=== PATIENT | male | born 1960 | race Caucasian/White ===

== ENCOUNTER 2017-11-26 13:48 | Emergency (ER) | payer OTHER, SELFPAY ==
[2017-11-26 15:49] LABS: Urine Blood NEGATIVE (NEG); Urine Glucose NEGATIVE (NEG); Urine Protein NEGATIVE (NEG); Urine Specific Gravity 1.015 (1.005-1.030); Urine pH 5.5 (5.0-7.0)
[2017-11-26 16:09] LABS: Urine Bacteria <20 /HPF (NONE SEEN); Urine Culture Reflex Order NOT NEEDED; Urine RBC <5 /HPF (NONE SEEN)
[2017-11-26 16:36] LABS: Absolute Lymphocytes (CBC) 1.6 K/uL (0.7-4.9); Absolute Monocytes 0.5 K/uL (0.1-1.3); Absolute Neutrophil 4.7 K/uL (1.8-8.0); Basophils % 0.4 % (0-1.3); Eosinophils % 2.9 % (0-4.4); Hematocrit 40.7 % (39.6-49.0); Lymphocytes % 23.1 % (15.3-44.8); MCH 29.8 pg (27.0-35.0); MCV 89.9 fL (80-100); MPV 10.1 fL (7.6-11.3); Monocytes % 7.1 % (3.3-12.3); RBC Red Blood Cell Count 4.53 M/uL (4.33-5.43)
--- NOTE | 2017-11-26 16:39 | RAD REPORT ---
EXAM DESCRIPTION: CT - Stone Protocol - 11/26/2017 4:27 pm CLINICAL HISTORY: Abdominal pain/flank pain/dysuria COMPARISON: None TECHNIQUE: Computed axial tomography of the abdomen pelvis was obtained without oral or IV contrast. Lack of IV and oral contrast limits evaluation of solid organs, bowel, and vessels. Coronal reformat nidhi images were obtained and reviewed. All CT scans are performed using dose optimization technique as appropriate and may include automated exposure control or mA/KV adjustment according to patient size. FINDINGS: A renal calculus is not seen. An ureteral calculus is not noted. A bladder calculus is not present. The liver, spleen, pancreas and adrenals appear grossly normal There is no evidence of diverticulitis. The appendix appears normal A diverticulum stems from the duodenum. A small umbilical hernia is present IMPRESSION: Negative for a genitourinary calculus
[2017-11-26 17:01] LABS: Potassium 4.2 mmol/L (3.5-5.1)
--- NOTE | 2017-11-26 17:17 | EDPHYS ---
Physician Documentation [facility] Name: Luis Melchor Age: 57 yrs Sex: Male : 1960 Arrival Date: 11/26/2017 Time: 13:51 Bed 13 Private MD: Johnny Hobson B ED Physician Gamaliel Lopez HPI: 11/26 17:14 This 57 yrs old Male presents to ER via Ambulatory with complaints of Urinary gs Problem. 17:14 The patient presents with urinary symptoms, dysuria. Onset: The symptoms/episode gs began/occurred 4 day(s) ago. Modifying factors: The symptoms are alleviated by nothing, the symptoms are aggravated by nothing. Associated signs and symptoms: Pertinent positives: lower back pain. Severity of symptoms: At their worst the symptoms were moderate, in the emergency department the symptoms are unchanged. The patient has experienced similar episodes in the past, a few times. The patient has not recently seen a physician. 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 - Social history:: Smoking status: Patient/guardian denies using tobacco, Patient/guardian denies using alcohol. - Ebola Screening: : Patient negative for fever greater than or equal to 101.5 degrees Fahrenheit, and additional compatible Ebola Virus Disease symptoms Patient denies exposure to infectious person Patient denies travel to an Ebola-affected area in the 21 days before illness onset. ROS: 17:14 All other systems are negative. gs Exam: 17:14 Head/Face: Normocephalic, atraumatic. Eyes: Pupils equal round and reactive to light, gs extra-ocular motions intact. Lids and lashes normal. Conjunctiva and sclera are non-icteric and not injected. Cornea within normal limits. Periorbital areas with no swelling, redness, or edema. ENT: Nares patent. No nasal discharge, no septal abnormalities noted. Tympanic membranes are normal and external auditory canals are clear. Oropharynx with no redness, swelling, or masses, exudates, or evidence of obstruction, uvula midline. Mucous membranes moist. Neck: Trachea midline, no thyromegaly or masses palpated, and no cervical lymphadenopathy. Supple, full range of motion without nuchal rigidity, or vertebral point tenderness. No Meningismus. Chest/axilla: Normal chest wall appearance and motion. Nontender with no deformity. No lesions are appreciated. Cardiovascular: Regular rate and rhythm with a normal S1 and S2. No gallops, murmurs, or rubs. Normal PMI, no JVD. No pulse deficits. Respiratory: Lungs have equal breath sounds bilaterally, clear to auscultation and percussion. No rales, rhonchi or wheezes noted. No increased work of breathing, no retractions or nasal flaring. Abdomen/GI: Soft, non-tender, with normal bowel sounds. No distension or tympany. No guarding or rebound. No evidence of tenderness throughout. Back: No spinal tenderness. No costovertebral tenderness. Full range of motion. Skin: Warm, dry with normal turgor. Normal color with no rashes, no lesions, and no evidence of cellulitis. MS/ Extremity: Pulses equal, no cyanosis. Neurovascular intact. Full, normal range of motion. Neuro: Awake and alert, GCS 15, oriented to person, place, time, and situation. Cranial nerves II-XII grossly intact. Motor strength 5/5 in all extremities. Sensory grossly intact. Cerebellar exam normal. Normal gait. 17:14 Constitutional: The patient appears alert, awake. Vital Signs: 14:14 BP 101 / 70; Pulse 64; Resp 18; Temp 97.5(TE); Pulse Ox 98% on R/A; Weight 115.67 kg; hj Height 5 ft. 10 in. (177.80 cm); Pain 4/10; 14:14 Body Mass Index 36.59 (115.67 kg, 177.80 cm) hj MDM: 14:27 Patient medically screened. gs 17:14 Differential diagnosis: UTI, urinary retention, kidney stone,aaa. Data reviewed: vital gs signs, nurses notes. Counseling: I had a detailed discussion with the patient and/or guardian regarding: the historical points, exam findings, and any diagnostic results supporting the discharge/admit diagnosis, lab results, radiology results. Response to treatment: the patient's symptoms have mildly improved after treatment, and as a result, I will discharge patient. 11/26 14:16 Order name: Urine Microscopic Only; Complete Time: 16:41 11/26 15:39 Order name: Urine Dipstick--Ancillary (enter results) em1 11/26 14:16 Order name: Urine Dipstick-Ancillary (obtain specimen); Complete Time: 15:37 11/26 16:00 Order name: CT Stone Protocol; Complete Time: 16:41 11/26 16:00 Order name: CBC with Diff; Complete Time: 16:41 11/26 16:00 Order name: Basic Metabolic Panel; Complete Time: 17:10 gs Administered Medications: No medications were administered Disposition: 11/26/17 17:16 Discharged to Home. Impression: Dysuria. - Condition is Stable. - Discharge Instructions: Dysuria. - Medication Reconciliation Form, Thank You Letter, Antibiotic Education, Prescription Opioid Use form. - Follow up: Adrienne Merritt MD; When: 2 - 3 days; Reason: Re-evaluation by your physician. Signatures: Dispatcher [employer] EDBen Silveira RN RN Suraj Garay RN RN Gamaliel Lopez MD MD Corrections: (The following items were deleted from the chart) 17:25 17:16 11/26/2017 17:16 Discharged to Home. Impression: Dysuria. Condition is Stable. sg Forms are Medication Reconciliation Form, Thank You Letter, Antibiotic Education, Prescription Opioid Use. Follow up: Adrienne Merritt; When: 2 - 3 days; Reason: Re-evaluation by your physician.
--- NOTE | 2017-11-26 17:17 | ER ---
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 Transition of care: patient was not received from another setting of care. Onset of symptoms was November 26, 2017. Risk Assessment: Do you want to hurt yourself or someone else? Patient reports no desire to harm self or others. Initial Sepsis Screen: Does the patient meet any 2 criteria? No. Patient's initial sepsis screen is negative. Does the patient have a suspected source of infection? No. Patient's initial sepsis screen is negative. Care prior to arrival: None. 14:11 Method Of Arrival: Ambulatory 14:11 Acuity: ALEX 3 hj Triage Assessment: 14:13 General: Appears in no apparent distress. uncomfortable, Behavior is calm, cooperative, hj appropriate for age. Pain: Complains of pain in abdomen. 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 - Social history:: Smoking status: Patient/guardian denies using tobacco, Patient/guardian denies using alcohol. - Ebola Screening: : Patient negative for fever greater than or equal to 101.5 degrees Fahrenheit, and additional compatible Ebola Virus Disease symptoms Patient denies exposure to infectious person Patient denies travel to an Ebola-affected area in the 21 days before illness onset. Screenin:13 Abuse screen: Denies threats or abuse. Denies injuries from another. Nutritional hj screening: No deficits noted. Tuberculosis screening: No symptoms or risk factors identified. Fall Risk None identified. Assessment: 15:00 General: Appears in no apparent distress. comfortable, well groomed, well developed, sg well nourished, Behavior is calm, cooperative, appropriate for age. Pain: Complains of pain in suprapubic area Quality of pain is described as crampy. Neuro: No deficits noted. Cardiovascular: Heart tones S1 S2 present Capillary refill is brisk in bilateral fingers Patient's skin is warm and dry. Chest pain is denied. Respiratory: Airway is patent Respiratory effort is even, unlabored, Respiratory pattern is regular, symmetrical. GI: Abdomen is round non-distended. : Reports burning with urination. EENT: No signs and/or symptoms were reported regarding the EENT system. Derm: Skin is pink, warm \T\ dry. Musculoskeletal: No signs and/or symptoms reported regarding the musculoskeletal system. Vital Signs: 14:14 BP 101 / 70; Pulse 64; Resp 18; Temp 97.5(TE); Pulse Ox 98% on R/A; Weight 115.67 kg; hj Height 5 ft. 10 in. (177.80 cm); Pain 4/10; 14:14 Body Mass Index 36.59 (115.67 kg, 177.80 cm) hj ED Course: 13:51 Patient arrived in ED. sb2 13:51 Johnny Hobson MD is Private Physician. sb2 14:12 Triage completed. hj 14:13 Arm band placed on left wrist. hj 14:13 Patient has correct armband on for positive identification. Placed in gown. Bed in low hj position. Call light in reach. Side rails up X 1. 14:17 Gamaliel Lopez MD is Attending Physician. gs 15:50 Ben Cabral, FESTUS is Primary Nurse. sg 16:21 Inserted saline lock: 22 gauge in left antecubital area, using aseptic technique. Blood ss collected. 16:29 CT Stone Protocol In Process Unspecified. EDMS 17:16 Adrienne Merritt MD is Referral Physician. gs 17:20 No provider procedures requiring assistance completed. IV discontinued, intact, sg bleeding controlled, No redness/swelling at site. Pressure dressing applied. Administered Medications: No medications were administered Outcome: 17:16 Discharge ordered by . gs 17:20 Discharged to home ambulatory, with family. sg 17:20 Condition: good 17:20 Discharge instructions given to patient, family, Instructed on discharge instructions, follow up and referral plans. safety practices, Demonstrated understanding of instructions, follow-up care. 17:25 Patient left the ED. sg Signatures: Dispatcher [employer] EDBen Silveira RN RN sg Smirch, Shelby, RN RN ss Joaquin, Henry, RN RN hj Starr, Gregory, MD MD gs Billeau, Sheri sb2 Corrections: (The following items were deleted from the chart) 14:15 14:14 Pulse 64bpm; Resp 18bpm; Pulse Ox 98% RA; Temp 97.5F Temporal; 115.67 kg; Height hj 5 ft. 10 in.; BMI: 36.5; Pain 4/10; hj
[2017-11-26 17:50] VITALS: BP 101/70; TEMP 97.5; O2SAT 98
== END 2017-11-26 17:25 | disposition home or self-care (01) ==
LOC: ER 13:48
DX: R30.0 Dysuria (principal); Z88.0 Allergy status to penicillin; Z85.89 Personal history of malignant neoplasm of other organs and systems
CPT/HCPCS: 36415; 74176; 76377; 80048; 81003; 81015; 85025; 99283

== ENCOUNTER 2020-09-04 17:41 | Emergency (ER) | payer OTHER ==
[2020-09-04 19:08] LABS: Absolute Lymphocytes (CBC) 1.8 K/uL (0.7-4.9); Basophils % 0.7 % (0-1.3); Lymphocytes % 18.3 % (15.3-44.8); MPV 9.8 fL (7.6-11.3); RBC Red Blood Cell Count 5.37 M/uL (4.33-5.43)
[2020-09-04 19:18] LABS: Protime INR 1.02
[2020-09-04] MEDS ORDERED: DIAZEPAM 10 MG/2 ML INJ SYRINGE ONE (19:20)
[2020-09-04] MEDS ORDERED: LIDOCAINE 4% PATCH ONE (19:20)
[2020-09-04 19:28] LABS: ALT/SGPT 26 U/L (12-78); AST/SGOT 18 U/L (15-37); Albumin 4.1 g/dL (3.4-5.0); Alkaline Phosphatase 81 U/L (45-117); BUN Blood Urea Nitrogen 20 mg/dL (7-18); Bicarbonate 28 mmol/L (21-32); Bilirubin Direct 0.1 mg/dL (0-0.2); Bilirubin Total 0.4 mg/dL (0.2-1.0); Glucose Level 96 mg/dL (74-106); Magnesium 2.3 mg/dL (1.8-2.4); NT PRO-BNP 83 pg/mL (<125); Protein, Total 7.7 g/dL (6.4-8.2); Sodium Level 140 mmol/L (136-145); Troponin (Emerg Dept Use Only) < 0.02 ng/mL (0.0-0.045)
--- NOTE | 2020-09-04 19:33 | RAD REPORT ---
EXAM DESCRIPTION: RAD - Chest Single View - 09/04/2020 7:05 pm CLINICAL HISTORY: Left arm numbness COMPARISON: May 2018 TECHNIQUE: AP portable chest image was obtained 09/04/2020 7:05 pm . FINDINGS: Lungs are clear. Lung markings match comparison. Heart and vasculature are normal. No carina urable pleural effusion and no pneumothorax. No acute bony abnormality seen. No acute aortic findings suspected. IMPRESSION: No acute cardiopulmonary process. No significant change from comparison study.
--- NOTE | 2020-09-04 19:49 | RAD REPORT ---
EXAM DESCRIPTION: CT - CTHCSPWOC - 09/04/2020 7:12 pm CLINICAL HISTORY: Left arm numbness, headache, head and neck cancer COMPARISON: Soft Tissue Neck W/Contr dated 02/05/2017 TECHNIQUE: Axial 5 mm thick images of the head were obtained. Axial 2 mm thick images of the cervic al spine were obtained with sagittal and coronal reconstruction images generated and reviewed. All CT scans are performed using dose optimization technique as appropriate and may include automated exposure control or mA/KV adjustment according to patient size. FINDINGS: No intracranial hemorrhage, mass, edema or acute intracranial finding. No suspicion for ac sana infarction. No extra-axial fluid collections. Mastoid air cells and paranasal sinuses are clear. No globe or orbit abnormality seen. Cervical body height and alignment are normal. Minimal disc space narrowing at C5-6 C6-7. Posterior e ndplate spurring and disc bulge changes are present both levels showing central spinal stenosis. Fora hermes stenosis present at C5-6 and C6-7 No fracture or acute bony abnormality. Central canal detail is inherently limited. No paraspinal mass or hematoma. IMPRESSION: Negative CT head examination for acute or significant finding. Negative CT cervical spine examination for acute finding. Endplate spurring uncovertebral joint hype rtrophy cause central spinal stenosis foraminal stenosis at C5-6 and C6-7.
--- NOTE | 2020-09-04 20:15 | ER ---
Nurse's Notes [facility] Name: Luis Melchor Age: 60 yrs Sex: Male : 1960 Arrival Date: 09/04/2020 Time: 17:44 Bed 6 Private MD: Johnny Hobson B Diagnosis: Muscle spasm of back;Radiculopathy, cervical region Presentation: 09/04 18:04 Chief complaint: Patient states: L arm numbness for 1 week. Dizziness for 1 day. Pain ll1 to L arm and L chest with certain arm movements. "I think its a pinched nerve.". Coronavirus screen: Client denies travel out of the [place] in the last 14 days. At this time, the client does not indicate any symptoms associated with coronavirus-19. Ebola Screen: Patient denies travel to an Ebola-affected area in the 21 days before illness onset. Initial Sepsis Screen: Does the patient meet any 2 criteria? HR > 90 bpm. No. Patient's initial sepsis screen is negative. Does the patient have a suspected source of infection? No. Patient's initial sepsis screen is negative. Risk Assessment: Do you want to hurt yourself or someone else? Patient reports no desire to harm self or others. Onset of symptoms was August 28, 2020. 18:04 Method Of Arrival: Ambulatory ll1 18:04 Acuity: ALEX 2 ll1 Historical: - Allergies: 18:07 PENICILLINS; ll1 - PMHx: 18:07 Cancer; caner of right tonsil and lymph node; Hypertension; ll1 - PSHx: 18:07 peg tube; R knee SX, L ankle SX; ll1 - Immunization history:: Flu vaccine is not up to date. - Social history:: Smoking status: Patient denies any tobacco usage or history of. Screenin:11 Abuse screen: Denies threats or abuse. Denies injuries from another. Nutritional ph screening: No deficits noted. Tuberculosis screening: No symptoms or risk factors identified. Fall Risk None identified. Assessment: 19:08 General: Appears in no apparent distress. comfortable, Behavior is calm, cooperative, ph appropriate for age. Pain: Complains of pain in left arm Pain radiates to neck and chest Quality of pain is described as radiating, sharp, shooting. Neuro: Level of Consciousness is awake, alert, obeys commands, Oriented to person, place, time, situation. Cardiovascular: Capillary refill < 3 seconds in bilateral fingers Patient's skin is warm and dry. Respiratory: Airway is patent Respiratory effort is even, unlabored, Respiratory pattern is regular, symmetrical. GI: No signs and/or symptoms were reported involving the gastrointestinal system. Derm: Skin is intact, is healthy with good turgor, Skin is pink, warm \\T\\ dry. Musculoskeletal: Circulation, motion, and sensation intact. Range of motion: intact in all extremities. 20:20 Reassessment: Patient appears in no apparent distress at this time. Patient is alert, rr5 oriented x 3, equal unlabored respirations, skin warm/dry/pink. discharge instruction given and explained without complaints made. Vital Signs: 18:04 BP 172 / 128; Pulse 98; Resp 18; Temp 97.6; Pulse Ox 96% on R/A; Weight 118.84 kg; ll1 Height 5 ft. 10 in. (177.80 cm); Pain 0/10; 20:55 BP 151 / 85; Pulse 90; Resp 17; Pulse Ox 98% ; rr5 18:04 Body Mass Index 37.59 (118.84 kg, 177.80 cm) ll1 ED Course: 17:44 Patient arrived in ED. as 17:44 Johnny Hobson MD is Private Physician. as 18:01 [facility]real [facility] pm1 18:01 Luis De La Rosa MD is Attending Physician. pm1 18:06 Triage completed. ll1 18:07 Arm band placed on Patient placed in an exam room, on a stretcher. ll1 18:24 Siomara Kapadia, RN is Primary Nurse. ph 18:47 Patient has correct armband on for positive identification. Placed in gown. Bed in low mh5 position. Call light in reach. Side rails up X 1. Pillow given. psychological operations specialist on. Pulse ox on. NIBP on. 18:48 EKG done, by ED staff, reviewed by Luis De La Rosa MD. mh5 18:58 Inserted saline lock: 20 gauge in right forearm, using aseptic technique. Blood bp collected. 19:04 XRAY Chest (1 view) In Process Unspecified. EDMS 19:12 CT Head C Spine In Process Unspecified. EDMS 19:15 Primary Nurse role handed off by Siomara Kapadia RN mw2 19:39 Yandel Morales, RN is Primary Nurse. rr5 20:55 No provider procedures requiring assistance completed. IV discontinued, intact, rr5 bleeding controlled, No redness/swelling at site. Pressure dressing applied. Administered Medications: 19:03 Drug: Valium (diazepam) 5 mg Route: IVP; Site: right forearm; ph 20:30 Follow up: Response: No adverse reaction rr5 19:43 Drug: Lidoderm 5 % (700 mg/patch) 1 patches {Note: left shoulder blade.} Route: rr5 Topical; Site: affected area; 20:40 Follow up: Response: No adverse reaction rr5 Outcome: 20:14 Discharge ordered by MD. pm1 20:55 Discharged to home ambulatory. rr5 20:55 Condition: stable 20:55 Discharge instructions given to patient, Instructed on discharge instructions, follow up and referral plans. medication usage, Demonstrated understanding of instructions, follow-up care, medications, Prescriptions given X 2. 20:55 Patient left the ED. rr5 Signatures: Dispatcher [employer] EDMS Angelique Dominique as Siomara Kapadia, RN RN ph Maxwell Villarreal, PREETI FILLER BLENDER pm1 Mary Jo Dominique 5 Canelo Tariq RN RN Aleja Carrero mw2 Yandel Morales, FESTUS RN rr5 Davide Dalal RN RN ll1 Corrections: (The following items were deleted from the chart) 18:07 18:04 Acuity: ALEX 3 ll1 ll1
--- NOTE | 2020-09-04 20:15 | EDPHYS ---
Physician Documentation [facility] Name: Luis Melcohr Age: 60 yrs Sex: Male : 1960 Arrival Date: 09/04/2020 Time: 17:44 Bed 6 Private MD: Johnny Hobson B ED Physician Luis De La Rosa HPI: 09/04 18:22 This 60 yrs old Male presents to ER via Ambulatory with complaints of pm1 Numbness Of Arm. 18:22 The patient or guardian complains of numbness to left arm. The complaints affect the pm1 left arm. Context: resulted from possible pinched nerve per patient. Onset: The symptoms/episode began/occurred 1 week(s) ago. Treatment prior to arrival includes: no previous treatment. Modifying factors: The symptoms are alleviated by movement of head to right side, and raising left arm up. the symptoms are aggravated by movement of head to left side. Associated signs and symptoms: Pertinent negatives: decreased range of motion, deformity. Severity of symptoms: in the emergency department the symptoms are unchanged. The patient has experienced similar episodes in the past, several times. Historical: - Allergies: 18:07 PENICILLINS; ll1 - PMHx: 18:07 Cancer; caner of right tonsil and lymph node; Hypertension; ll1 - PSHx: 18:07 peg tube; R knee SX, L ankle SX; ll1 - Immunization history:: Flu vaccine is not up to date. - Social history:: Smoking status: Patient denies any tobacco usage or history of. ROS: 18:22 Constitutional: Negative for fever, chills, and weight loss, Neck: Negative for injury, pm1 pain, and swelling, Cardiovascular: Negative for chest pain, palpitations, and edema, Respiratory: Negative for shortness of breath, cough, wheezing, and pleuritic chest pain. 18:22 Back: Negative for injury and pain, MS/Extremity: Negative for injury and deformity, Skin: Negative for injury, rash, and discoloration. 18:22 Neuro: Positive for numbness, of the left arm, Negative for weakness. 18:22 All other systems are negative. Exam: 18:22 Constitutional: This is a well developed, well nourished patient who is awake, alert, pm1 and in no acute distress. Head/Face: Normocephalic, atraumatic. 18:22 Skin: Warm, dry with normal turgor. Normal color with no rashes, no lesions, and no evidence of cellulitis. MS/ Extremity: Pulses equal, no cyanosis. Neurovascular intact. Full, normal range of motion. 18:22 Neck: External neck: tenderness, of the left trapezius, muscle spasm present, C-spine: vertebral tenderness, is not appreciated. 18:22 Cardiovascular: Exam negative for acute changes, Rate: normal, Rhythm: regular, Pulses: no pulse deficits are appreciated, Heart sounds: normal, normal S1and S2. 18:22 Respiratory: Exam negative for acute changes, respiratory distress, shortness of breath, Breath sounds: are clear throughout. 18:22 Back: normal spinal alignment noted, vertebral tenderness, is not appreciated, muscle spasm, is appreciated in the left trapezius. 18:22 Neuro: Exam negative for acute changes, Orientation: is normal, Mentation: is normal, Motor: is normal, moves all fours, strength is normal, strength is 5/5 in all extremities, Sensation: is normal, no obvious gross deficits. Vital Signs: 18:04 BP 172 / 128; Pulse 98; Resp 18; Temp 97.6; Pulse Ox 96% on R/A; Weight 118.84 kg; ll1 Height 5 ft. 10 in. (177.80 cm); Pain 0/10; 20:55 BP 151 / 85; Pulse 90; Resp 17; Pulse Ox 98% ; rr5 18:04 Body Mass Index 37.59 (118.84 kg, 177.80 cm) ll1 MDM: 18:05 Patient medically screened. pm1 20:01 Data reviewed: vital signs. Data interpreted: Pulse oximetry: on room air is 96 %. pm1 Interpretation: normal. Counseling: I had a detailed discussion with the patient and/or guardian regarding: the historical points, exam findings, and any diagnostic results supporting the discharge/admit diagnosis, lab results, radiology results, the need for outpatient follow up, to return to the emergency department if symptoms worsen or persist or if there are any questions or concerns that arise at home. 20:17 ED course: [place] reviewed: No results found. pm1 09/04 18:21 Order name: Basic Metabolic Panel pm1 09/04 18:21 Order name: CBC with Diff pm1 09/04 18:21 Order name: LFT's; Complete Time: 19:35 pm1 09/04 18:21 Order name: Magnesium; Complete Time: 19:35 pm1 09/04 18:21 Order name: NT PRO-BNP; Complete Time: 19:35 pm1 09/04 18:21 Order name: PT-INR; Complete Time: 19:42 pm1 09/04 18:21 Order name: CT Head C Spine; Complete Time: 20:00 pm1 09/04 18:21 Order name: Troponin (emerg Dept Use Only); Complete Time: 19:35 pm1 09/04 18:21 Order name: XRAY Chest (1 view); Complete Time: 19:35 pm1 09/04 18:21 Order name: EKG; Complete Time: 18:22 pm1 09/04 18:22 Order name: Basic Metabolic Panel; Complete Time: 19:35 EDMS 09/04 18:22 Order name: CBC with Automated Diff; Complete Time: 19:43 EDMS 09/04 18:21 Order name: Cardiac monitoring; Complete Time: 18:30 pm1 09/04 18:21 Order name: EKG - Nurse/Tech; Complete Time: 18:31 pm1 09/04 18:21 Order name: IV Saline Lock; Complete Time: 19:05 pm1 09/04 18:21 Order name: Labs collected and sent; Complete Time: 19:06 pm1 09/04 18:21 Order name: O2 Per Protocol; Complete Time: 19:08 pm1 09/04 18:21 Order name: O2 Sat Monitoring; Complete Time: 19:08 pm1 Administered Medications: 19:03 Drug: Valium (diazepam) 5 mg Route: IVP; Site: right forearm; ph 20:30 Follow up: Response: No adverse reaction rr5 19:43 Drug: Lidoderm 5 % (700 mg/patch) 1 patches {Note: left shoulder blade.} Route: rr5 Topical; Site: affected area; 20:40 Follow up: Response: No adverse reaction rr5 Disposition: 09/05 08:06 Co-signature as Attending Physician, Luis De La Rosa MD. rn Disposition: 09/04/20 20:14 Discharged to Home. Impression: Radiculopathy, cervical region, Muscle spasm of back. - Condition is Stable. - Discharge Instructions: Cervical Radiculopathy, Muscle Cramps and Spasms, Heat Therapy. - Prescriptions for Valium 2 mg Oral Tablet - take 1 tablet by ORAL route every 8 hours As needed; 12 tablet. Lidoderm 5 % Topical adhesive patch,medicated - apply 1 patch by TRANSDERMAL route once daily As needed 12 hours on and 12 hours off in a 24 hour period; 12 Transdermal Patch. - Medication Reconciliation Form, Thank You Letter, Antibiotic Education, Prescription Opioid Use form. - Follow up: Emergency Department; When: As needed; Reason: Worsening of condition. Follow up: Private Physician; When: 2 - 3 days; Reason: Recheck today's complaints, Continuance of care, Re-evaluation by your physician. - Problem is new. - Symptoms have improved. Signatures: Dispatcher [employer] EDMS Luis De La Rosa MD MD rn Hall, Siomara RN RN Maxwell Vera, PREETI PROTECTION AGENT pm1 Yandel Morales RN RN rr5 Davide Dalal RN RN ll1 Corrections: (The following items were deleted from the chart) 09/04 20:55 20:14 09/04/2020 20:14 Discharged to Home. Impression: Radiculopathy, cervical rr5 regionMuscle spasm of back. Condition is Stable. Forms are Medication Reconciliation Form, Thank You Letter, Antibiotic Education, Prescription Opioid Use. Follow up: Emergency Department; When: As needed; Reason: Worsening of condition. Follow up: Private Physician; When: 2 - 3 days; Reason: Recheck today's complaints, Continuance of care, Re-evaluation by your physician. Problem is new. Symptoms have improved. pm1
[2020-09-04 21:33] VITALS: TEMP 97.6
[2020-09-04 21:34] VITALS: BP 151/85; O2SAT 98
== END 2020-09-04 20:55 | disposition home or self-care (01) ==
LOC: ER 17:41
DX: M54.12 Radiculopathy, cervical region (principal); M62.830 Muscle spasm of back; I10 Essential (primary) hypertension; Z88.0 Allergy status to penicillin
CPT/HCPCS: 85025; 80048; 36415; 83735; 85610; 80076; 84484; 83880; 70450; 72125; 71045; J3360; 96374; 99284

== ENCOUNTER 2020-12-27 01:09 | Inpatient (IN) | payer OTHER ==
[2020-12-27] MEDS ORDERED: NA CHLORIDE 0.9% 1,000 ML ONE (02:03)
[2020-12-27] MEDS ORDERED: ONDANSETRON 4 MG/2 ML VIAL ONE (02:03)
[2020-12-27] MEDS ORDERED: FAMOTIDINE 20 MG/2 ML VIAL IV ONE (02:03)
[2020-12-27 02:24] LABS: Absolute Lymphocytes (CBC) 1.7 K/uL (0.7-4.9); Basophils % 0.2 % (0-1.3); Lymphocytes % 9.6 % (15.3-44.8); MPV 9.9 fL (7.6-11.3); RBC Red Blood Cell Count 4.78 M/uL (4.33-5.43)
[2020-12-27 02:36] LABS: Albumin 3.2 g/dL (3.4-5.0); Bilirubin Direct 0.2 mg/dL (0-0.2); Bilirubin Total 0.7 mg/dL (0.2-1.0); Magnesium 2.2 mg/dL (1.8-2.4); Potassium 3.8 mmol/L (3.5-5.1); Protein, Total 7.4 g/dL (6.4-8.2)
[2020-12-27 04:08] LABS: Urine Blood 1+ (Negative); Urine Glucose Negative (Negative); Urine Protein 1+ (Negative); Urine Specific Gravity 1.015 (1.005-1.030)
--- NOTE | 2020-12-27 04:20 | ER ---
Nurse's Notes [facility] Name: Luis Melchor Age: 60 yrs Sex: Male : 1960 Arrival Date: 12/27/2020 Time: 01:13 Bed 7 Private MD: Diagnosis: Pyelonephritis acute;Nausea with vomiting, unspecified Presentation: 12/27 01:24 Chief complaint: Patient states: Vomiting that began 2 days ago, unable to tolerate lp1 food or fluids; states feeling cold and chills; Denies abdominal pain; reports having "a bad tooth". Coronavirus screen: chills, headache, vomiting. Ebola Screen: No symptoms or risks identified at this time. Initial Sepsis Screen: Does the patient meet any 2 criteria? No. Patient's initial sepsis screen is negative. Does the patient have a suspected source of infection? No. Patient's initial sepsis screen is negative. Risk Assessment: Do you want to hurt yourself or someone else? Patient reports no desire to harm self or others. Onset of symptoms was December 27, 2020. 01:24 Method Of Arrival: Ambulatory lp1 01:24 Acuity: ALEX 3 lp1 Triage Assessment: 01:29 General: Appears uncomfortable, obese, Behavior is cooperative, appropriate for age, wg anxious. Respiratory: Reports cough that is non-productive, GI: Reports nausea, vomiting, Patient currently denies abdominal pain, diarrhea. Historical: - Allergies: 01:26 PENICILLINS; lp1 - Home Meds: 01:26 levothyroxine 50 mcg tab 1 tab once daily [Active]; lp1 - PMHx: 01:26 Cancer; caner of right tonsil and lymph node; Hypertension; lp1 - PSHx: 01:26 Neck fusion; lp1 - Immunization history:: Adult Immunizations up to date, Client reports having NOT received the Covid vaccine. - Social history:: Smoking status: Patient denies any tobacco usage or history of. Screenin:27 Abuse screen: Denies threats or abuse. Denies injuries from another. Nutritional lp1 screening: No deficits noted. Tuberculosis screening: No symptoms or risk factors identified. Fall Risk None identified. Assessment: 01:30 Reassessment: Patient denies pain at this time. General: Appears uncomfortable, obese, dc2 well developed. Pain: Denies pain. Neuro: No deficits noted. Cardiovascular: No deficits noted. GI: Abdomen is round obese, Pt very loudly attempting to vomit but is just gagging. No emesis noted. Bowel sounds present X 4 quads. : No signs and/or symptoms were reported regarding the genitourinary system. Musculoskeletal: No deficits noted. No signs and/or symptoms reported regarding the musculoskeletal system. 01:54 Reassessment: Fan placed on chair per pt request. dc2 04:53 Reassessment: Patient appears in no apparent distress at this time. Patient and/or wg family updated on plan of care and expected duration. Pain level reassessed. Patient is alert, oriented x 3, equal unlabored respirations, skin warm/dry/pink. Pt stating he is feeling better but agrees to stay in the hospital. Pt states he just wants a good night's rest. Patient states feeling better. Vital Signs: 01:24 BP 148 / 85; Pulse 89; Resp 20; Temp 100.6(O); Pulse Ox 93% on R/A; Weight 120.66 kg lp1 (R); Height 5 ft. 10 in. (177.80 cm); Pain 0/10; 01:31 BP 148 / 85; Pulse 87; Resp 20; Pulse Ox 96% on R/A; wg 02:29 BP 148 / 79; Pulse 80; Resp 20; Pulse Ox 91% on R/A; Pain 0/10; dc2 03:30 BP 102 / 53; Pulse 73; Resp 18; Pulse Ox 90% on R/A; Pain 0/10; dc2 04:30 BP 105 / 66; Pulse 68; Resp 18; Pulse Ox 94% on R/A; Pain 0/10; dc2 05:10 BP 107 / 64; Pulse 67; Resp 18; Temp 99.0; Pulse Ox 100% on R/A; Pain 0/10; wg 01:24 Body Mass Index 38.17 (120.66 kg, 177.80 cm) lp1 ED Course: 01:13 Patient arrived in ED. bp1 01:21 Woody Burks PA is PHCP. cp 01:21 Maldonado Melendez MD is Attending Physician. cp 01:26 Triage completed. lp1 01:26 Arm band placed on. lp1 01:27 Vani Jhaveri, RN is Primary Nurse. dc2 01:29 Patient has correct armband on for positive identification. Placed in gown. Bed in low wg position. Call light in reach. Side rails up X2. 01:29 Inserted saline lock: 20 gauge in right forearm, using aseptic technique. Blood wg collected. Patient maintains SpO2 saturation greater than 95% on room air. 01:43 XRAY Chest (1 view) Sent. dc2 01:43 Influenza Screen (a \\T\\ B) Sent. dc2 01:43 Phosphorus Sent. dc2 01:43 Magnesium Sent. dc2 01:51 XRAY Chest (1 view) In Process Unspecified. EDMS 01:56 No provider procedures requiring assistance completed. dc2 02:30 Resting quietly. Awaiting lab results, Awaiting radiology results. dc2 02:30 cardiac monitor on. Pulse ox on. NIBP on. dc2 03:30 No apparent distress. Resting quietly. dc2 03:30 First set of blood cultures drawn by ED staff. dc2 03:39 Abdomen In Process Unspecified. EDMS 04:19 Yandel De La Rosa MD is Hospitalizing Provider. [facility] 04:20 Admitting physician to see patient. dc2 04:26 Urine Culture Sent. wg 04:34 Blood Culture Sent. wg 04:48 Blood Culture Adult (2) Sent. wg Administered Medications: 01:35 Drug: NS 0.9% 1000 ml Route: IV; Rate: 1000 ml/hr; Infused Over: 1 hrs; Site: right dc2 forearm; Delivery: Primary tubing; 01:50 Follow up: IV Status: Completed infusion; IV Intake: 1000ml wg 01:36 Drug: Pepcid (famotidine) 20 mg Route: IVP; Site: right forearm; dc2 02:28 Follow up: Response: Nausea is decreased dc2 01:37 Drug: Zofran (Ondansetron) 4 mg Route: IVP; Site: right forearm; dc2 02:28 Follow up: Response: Nausea is decreased dc2 04:20 Drug: Rocephin (cefTRIAXone) 1 grams Route: IV; Rate: calculated rate; Infused Over: 5 wg mins; Site: right forearm; 04:25 Follow up: IV Status: Completed infusion wg 04:47 Drug: Tylenol 650 mg Route: PO; wg 04:54 Follow up: Response: No adverse reaction wg 05:30 Follow up: Response: No adverse reaction wg Intake: 01:50 IV: 1000ml; Total: 1000ml. Outcome: 04:19 Decision to Hospitalize by Provider. [facility] 05:29 Admitted to Med/surg accompanied by tech, via wheelchair, room 420, with chart, Report wg called to [facility]ST[facility] 05:30 Patient left the ED. Signatures: Dispatcher [employer] EDMS Urmila Smith RN RN lp1 Woody Burks PA PA cp Paniauga, Brittany bp1 Holmes, Maurice, MD MD 7 Shun Gandara RN ShakilaVani RN RN dc2 Corrections: (The following items were deleted from the chart) 03:28 03:27 To radiology for Abdomen . EDMS
--- NOTE | 2020-12-27 04:20 | EDPHYS ---
Physician Documentation [facility] Name: Luis Melchor Age: 60 yrs Sex: Male : 1960 Arrival Date: 12/27/2020 Time: 01:13 Bed 7 Private MD: ED Physician Maldonado Melendez HPI: 12/27 01:40 This 60 yrs old Male presents to ER via Ambulatory with complaints of cp Vomiting. 01:40 The patient presents to the emergency department with nausea, with "dry heaves", cp vomiting, that is continuous. Onset: The symptoms/episode began/occurred 2 day(s) ago. 01:40 Associated signs and symptoms: Pertinent positives: fever, Pertinent negatives: cp abdominal pain, constipation, diarrhea, GI bleeding. 01:40 Severity of symptoms: in the emergency department the symptoms are unchanged despite cp home interventions. Historical: - Allergies: 01:26 PENICILLINS; lp1 - Home Meds: 01:26 levothyroxine 50 mcg tab 1 tab once daily [Active]; lp1 - PMHx: 01:26 Cancer; caner of right tonsil and lymph node; Hypertension; lp1 - PSHx: 01:26 Neck fusion; lp1 - Immunization history:: Adult Immunizations up to date, Client reports having NOT received the Covid vaccine. - Social history:: Smoking status: Patient denies any tobacco usage or history of. ROS: 01:45 Constitutional: Positive for fever, poor PO intake, Negative for body aches. cp 01:45 Eyes: Negative for injury, pain, redness, and discharge. cp 01:45 ENT: Negative for drainage from ear(s), ear pain, sore throat, difficulty swallowing, difficulty handling secretions. 01:45 Cardiovascular: Negative for chest pain, palpitations. 01:45 Respiratory: Positive for cough, Negative for shortness of breath, wheezing. 01:45 Abdomen/GI: Positive for nausea and vomiting, anorexia, Negative for abdominal pain, hematemesis, black/tarry stool, rectal bleeding. 01:45 Back: Negative for pain at rest, pain with movement. 01:45 Neuro: Negative for altered mental status, headache, weakness. 01:45 All other systems are negative. Exam: 01:50 Constitutional: The patient appears in no acute distress, alert, awake, cp non-diaphoretic, non-toxic, well developed, well nourished. 01:50 Head/Face: Normocephalic, atraumatic. cp 01:50 Eyes: Periorbital structures: appear normal, Conjunctiva: normal, no exudate, no injection, Sclera: no appreciated abnormality, Lids and lashes: appear normal, bilaterally. 01:50 ENT: External ear(s): are unremarkable, Nose: is normal, Mouth: Lips: dry, Oral mucosa: moist, Posterior pharynx: Airway: no evidence of obstruction, patent. 01:50 Neck: ROM/movement: is normal, is supple, without pain, no range of motions limitations. 01:50 Chest/axilla: Inspection: normal, Palpation: is normal, no crepitus, no tenderness. 01:50 Cardiovascular: Rate: normal, Rhythm: regular, Edema: is not appreciated, JVD: is not appreciated. 01:50 Respiratory: the patient does not display signs of respiratory distress, Respirations: normal, no use of accessory muscles, no retractions, labored breathing, is not present, Breath sounds: bronchial sounds, that are mild, are heard diffusely, stridor, is not appreciated. 01:50 Abdomen/GI: Inspection: abdomen appears normal, Bowel sounds: active, all quadrants, Palpation: abdomen is soft and non-tender, in all quadrants. 01:50 Neuro: Orientation: to person, place \\T\\ time. Mentation: is normal. Vital Signs: 01:24 BP 148 / 85; Pulse 89; Resp 20; Temp 100.6(O); Pulse Ox 93% on R/A; Weight 120.66 kg lp1 (R); Height 5 ft. 10 in. (177.80 cm); Pain 0/10; 01:31 BP 148 / 85; Pulse 87; Resp 20; Pulse Ox 96% on R/A; wg 02:29 BP 148 / 79; Pulse 80; Resp 20; Pulse Ox 91% on R/A; Pain 0/10; dc2 03:30 BP 102 / 53; Pulse 73; Resp 18; Pulse Ox 90% on R/A; Pain 0/10; dc2 04:30 BP 105 / 66; Pulse 68; Resp 18; Pulse Ox 94% on R/A; Pain 0/10; dc2 05:10 BP 107 / 64; Pulse 67; Resp 18; Temp 99.0; Pulse Ox 100% on R/A; Pain 0/10; wg 01:24 Body Mass Index 38.17 (120.66 kg, 177.80 cm) lp1 MDM: 01:27 Patient medically screened. cp 04:17 Differential diagnosis: gastritis, appendicitis, viral gastroenteritis, mh7 gastroenteritis, UTI, pyelonephritis. Data reviewed: vital signs, nurses notes, lab test result(s), CBC, electrolytes, urinalysis, radiologic studies, CT scan, plain films. Data interpreted:. Counseling: I had a detailed discussion with the patient and/or guardian regarding: the historical points, exam findings, and any diagnostic results supporting the discharge/admit diagnosis, the presence of at least one elevated blood pressure reading (>120/80) during this emergency department visit, lab results, radiology results, the need for further work-up and treatment in the hospital. Response to treatment: the patient's symptoms have mildly improved after treatment. 12/27 01:35 Order name: Basic Metabolic Panel; Complete Time: 02:40 cp 12/27 02:40 Interpretation: Normal except: GLUC 127; BUN 37; CRE 1.73; GFR 40; CA 10.2. cp 12/27 01:35 Order name: CBC with Diff; Complete Time: 02:40 cp 12/27 02:40 Interpretation: Normal except: WBC 17.80; NADIRA% 80.9; LYM% 9.6; NEUT A 14.4; MNA 1.6. cp 12/27 01:35 Order name: Hepatic Function; Complete Time: 02:40 cp 12/27 02:41 Interpretation: Normal except: ALB 3.2; GLOB 4.2; A/G 0.8. cp 12/27 01:35 Order name: Lipase; Complete Time: 02:40 cp 12/27 01:35 Order name: Urine Microscopic Only; Complete Time: 16:41 cp 12/27 01:35 Order name: Magnesium; Complete Time: 02:40 cp 12/27 01:35 Order name: Phosphorus; Complete Time: 02:40 cp 12/27 01:35 Order name: Influenza Screen (a \\T\\ B); Complete Time: 02:40 cp 12/27 03:13 Order name: SARS-COV-2 RT PCR; Complete Time: 03:17 EDMS 12/27 04:07 Order name: Urine Dipstick-Ancillary; Complete Time: 04:12 EDMS 12/27 04:12 Order name: Urine Culture mh7 12/27 04:30 Order name: Blood Culture Adult (2) lp1 12/27 04:30 Order name: Blood Culture EDMS 12/27 01:35 Order name: IV Saline Lock; Complete Time: 01:45 cp 12/27 01:35 Order name: Labs collected and sent; Complete Time: 01:45 cp 12/27 01:35 Order name: XRAY Chest (1 view); Complete Time: 16:41 cp 12/27 01:35 Order name: Urine Dipstick-Ancillary (obtain specimen); Complete Time: 05:17 cp 12/27 03:35 Order name: Abdomen ; Complete Time: 16:41 EDMS Administered Medications: 01:35 Drug: NS 0.9% 1000 ml Route: IV; Rate: 1000 ml/hr; Infused Over: 1 hrs; Site: right dc2 forearm; Delivery: Primary tubing; 01:50 Follow up: IV Status: Completed infusion; IV Intake: 1000ml wg 01:36 Drug: Pepcid (famotidine) 20 mg Route: IVP; Site: right forearm; dc2 02:28 Follow up: Response: Nausea is decreased dc2 01:37 Drug: Zofran (Ondansetron) 4 mg Route: IVP; Site: right forearm; dc2 02:28 Follow up: Response: Nausea is decreased dc2 04:20 Drug: Rocephin (cefTRIAXone) 1 grams Route: IV; Rate: calculated rate; Infused Over: 5 wg mins; Site: right forearm; 04:25 Follow up: IV Status: Completed infusion wg 04:47 Drug: Tylenol 650 mg Route: PO; wg 04:54 Follow up: Response: No adverse reaction wg 05:30 Follow up: Response: No adverse reaction wg Disposition: 05:32 Co-signature as Attending Physician, Maldonado Melendez MD. [facility] Disposition Summary: 12/27/20 04:19 Hospitalization Ordered Hospitalization Status: Inpatient Admission [facility] Provider: Yandel De La Rosa Location: Telemetry/MedSur (Inpatient) [facility] Condition: Stable [facility] Problem: new [facility] Symptoms: have improved [facility] Bed/Room Type: Standard [facility] Room Assignment: 420(12/27/20 05:09) tl1 Diagnosis - Pyelonephritis acute mh7 - Nausea with vomiting, unspecified 7 Forms: - Medication Reconciliation Form 7 - SBAR form 7 Signatures: Dispatcher [employer] EDMS Urmila Smith, RN RN lp1 Diego Rangel, TEAM OTR TRUCK DRIVER-C TEAM OTR TRUCK DRIVER-Cla1 Lisa Maldonado RN RN tl1 Woody Burks PA PA cp Holmes, Maurice, MD MD 7 Shun Gandara RN Vani Jhaveri RN RN dc2 Corrections: (The following items were deleted from the chart) 01:55 01:35 CORONAVIRUS+MR.LAB.BRZ ordered. EDMS EDMS 02:49 02:14 Abdomen Pelvis W Con+CT.RAD.BRZ ordered. EDMS EDMS 03:28 02:49 Abdomen ordered. EDMS EDMS 05:09 04:19 mh7 tl1
[2020-12-27] MEDS ORDERED: CEFTRIAXONE 1000 MG/VIAL ONE (04:45)
--- NOTE | 2020-12-27 04:54 | P.HP ---
Certification for Inpatient Patient admitted to: Inpatient With expected LOS: >2 Midnights Patient will require the following post-hospital care: None Practitioner: I am a practitioner with admitting privileges, knowledge of patient current condition, hospital course, and medical plan of care. Services: Services provided to patient in accordance with Admission requirements found in Title 42 Section 412.3 of the Code of Federal Regulations Patient History Date of Service: 12/27/20 Reason for admission: Pyelonephritis History of Present Illness: 60-year-old male with history of tonsillar cancerin remission, hypertension presents emergency department for vomiting, chills, malaise. Patient reports that he had cervical fusion approximately 3 weeks ago after which he had some dysuria which had since cleared up. Patient was evaluated in the emergency department labs are significant for white blood cell count 17.8 with left shift creatinine 1.73 GFR 40 glucose 127 urinalysis nitrite +1+ leukoesterase microscopic pending Covid test negative CT demonstrates suspected left-sided pyelonephritis. Patient started on Rocephin, ED provider wishes to admit for further evaluation and management. Allergies Penicillins Allergy (Verified 06/19/15 04:23) swelling No Known Allergies Allergy (Uncoded 06/19/15 08:38) Unknown Home Medications: Amlodipine Besylate [Norvasc] 10 mg PO DAILY WITH BREAKFAST 04/15/15 Spironolactone [Aldactone*] 25 mg PO DAILY 04/15/15 Ondansetron HCl [Zofran] 4 mg PO PRN 06/19/15 dexAMETHasone [Dexamethasone] 8 mg PO SEECOM 06/19/15 Pantoprazole Sodium [Protonix] 40 mg PO DAILY #30 tablet. 06/23/15 - Past Medical/Surgical History Diabetic: No -: HTN -: THROAT/TONSILLAR CANCERin remission -: Cervical fusion Psychosocial/ Personal History: Disabled, lives with girlfriend - Family History Father -: Heart disease, Diabetes Mother -: Diabetes, Cancer - Social History Smoking Status: Never smoker Alcohol use: No CD- Drugs: No Caffeine use: No Place of Residence: Home Review of Systems 10-point ROS is otherwise unremarkable General: Fever, Chills, Weakness, Malaise Gastrointestinal: Nausea, Vomiting Physical Examination - Physical Exam General: Alert, In no apparent distress, Oriented x3 HEENT: Atraumatic, PERRLA, Other (Mucous membranes are dry), EOMI, Sclerae nonicteric Neck: Supple, 2+ carotid pulse no bruit, No LAD, Without JVD or thyroid abnormality Respiratory: Clear to auscultation bilaterally, Normal air movement Cardiovascular: Regular rate/rhythm, Normal S1 S2 Gastrointestinal: Normal bowel sounds, No tenderness Musculoskeletal: No tenderness Integumentary: No rashes Neurological: Normal speech, Normal strength at 5/5 x4 extr, Normal tone, Normal affect Lymphatics: No axilla or inguinal lymphadenopathy - Studies Laboratory Data (last 24 hrs) 12/27/20 01:30: WBC 17.80 H, Hgb 14.0, Hct 42.0, Plt Count 213 12/27/20 01:30: Sodium 139, Potassium 3.8, BUN 37 H, Creatinine 1.73 H, Glucose 127 H, Phosphorus 3.0, Magnesium 2.2, Total Bilirubin 0.7, AST 29, ALT 41, Alkaline Phosphatase 89, Lipase 55 L Microbiology Data (last 24 hrs): 12/27/20 01:35 Nasopharnyx Influenza Type A Antigen Screen - Final 12/27/20 01:35 Nasopharnyx Influenza Type B Antigen Screen - Final Assessment and Plan - Plan Assessment: Fever, leukocytosis secondary to left-sided pyelonephritis YULIYA superimposed on CKD 3 Hypertension History of tonsillar cancerin remission Plan: Fever, leukocytosis secondary to left-sided pyelonephritis: Blood and urine cultures obtained in the emergency department continue with IV fluids, Rocephin, as needed pain medications, antipyretics. Patient still with vomiting and nausea will maintain n.p.o. status for now and advance as tolerated. Anticipate clinical improvement over the course next 48 to 72 hours. YULIYA superimposed on CKD 3: Not far from baseline, continue with IV fluids recheck with morning labs. Consult nephrology as necessary for worsening renal function. Hypertension: Obtain and verify home medications History of tonsillar cancerin remission: Stable. DVT PPX: Heparin Code status: Full Discharge Plan: Home Plan to discharge in: Greater than 2 days - Advance Directives Does patient have a Living Will: No Does patient have a Durable POA for Healthcare: No - Code Status/Comfort Care Code Status Assessed: Yes (Full code) Critical Care: No Time Spent Managing Pts Care (In Minutes): 55
[2020-12-27] MEDS ORDERED: ACETAMINOPHEN 325 MG TABLET ONE (05:11)
[2020-12-27 05:29] LABS: Urine Bacteria >50 /HPF (NONE SEEN)
[2020-12-27 05:30] LABS: Urine RBC <5 /HPF (NONE SEEN)
[2020-12-27] MEDS ORDERED: SODIUM CHLORIDE 0.9% 10ML INJ IV PRN (06:23)
[2020-12-27 07:09] VITALS: BMI 37.7
--- NOTE | 2020-12-27 07:39 | RAD REPORT ---
EXAM DESCRIPTION: Teodoro Single View12/27/2020 1:50 am CLINICAL HISTORY: Cough COMPARISON: August 2020 FINDINGS: The lungs appear clear of acute infiltrate. The heart is normal size IMPRESSION: No acute abnormalities displayed
[2020-12-27] MEDS: NA CHLORIDE 0.9% 1,000 ML IV SCH ×2 (09:10→14:23)
[2020-12-27] MEDS: HEPARIN 5000 UNIT/ML 1 ML VIAL SQ SCH ×2 (09:10→20:42)
[2020-12-27] MEDS: PANTOPRAZOLE 40 MG INJ IVP SCH (09:10)
--- NOTE | 2020-12-27 10:16 | RAD REPORT ---
EXAM DESCRIPTION: CT - Abdomen Pelvis Wo Contrast - 12/27/2020 6:54 am CLINICAL HISTORY: 60 years, Male, PAIN COMPARISON: None. TECHNIQUE: Multiple transaxial tomograms of the abdomen and pelvis were performed from the lung base s to the symphysis pubis 5 mm slice thickness at 5 mm interval reconstruction, without administration of IV and oral contrast. Multiplanar reformats in the sagittal and coronal plane were generated and reviewed. This exam was performed according to our departmental dose-optimization protocol, which includes auto mated exposure control, adjustment of the mA and/or kV according to patient size and/or use of iterat shade reconstruction technique. FINDINGS: The lack of IV and oral contrast limits evaluation of solid organs, subtle lesions cannot be excluded. The lung bases demonstrate minimal dependent atelectatic changes posterior CP angles. Grossly the unopacified liver, gallbladder, pancreas, spleen and adrenal glands demonstrate to be wit hin normal limits, no significant focal lesions were identified. The right kidney demonstrate to be unremarkable. There is no evidence for nephrolithiasis and/or righ t hydronephrosis. The left kidney demonstrate slight increase size with surrounding perinephric haziness suggesting the possibility of pyelonephritis and/or passage of recent calculus. There is no evidence for left hydro nephrosis and/or hydroureter No focal masses were demonstrated. Grossly the unopacified stomach, small bowel and large bowel demonstrate to be within normal limits. There is no evidence for bowel dilatation an/or free air. The appendix is normal. The urinary bladder demonstrate to be within normal limits. The prostate gland is normal The aorta de monstrate to be within normal limits. There is no retroperitoneal lymphadenopathy. There is no ev idence for ascites. The bone windows demonstrate anterior spondylosis with minimal degenerative pinto es at L5/S1. IMPRESSION: Slight increase size of the left kidney with surrounding perinephric haziness suggesting the possibility of pyelonephritis and/or passage of recent calculus could be of consideration, corre late clinically and urinalysis Electronically signed by: Christiano Mason MD 12/27/2020 3:53 AM CDT Due to temporary technical issues with the PACS/Fluency reporting system, reports are being signed by the in house radiologist without review as a courtesy to ensure prompt reporting. The interpreting r adiologist is fully responsible for the content of the report.
[2020-12-27] MEDS: ONDANSETRON 4 MG/2 ML VIAL IV PRN (17:34)
[2020-12-27] MEDS: ACETAMINOPHEN 500 MG TAB PO PRN (19:36)
[2020-12-27] MEDS: MELATONIN 5 MG TABLET PO PRN (20:41)
[2020-12-27] MEDS: GABAPENTIN 300 MG CAP PO SCH (20:42)
[2020-12-28] MEDS: ONDANSETRON 4 MG/2 ML VIAL IV PRN (03:53)
[2020-12-28] MEDS: CEFTRIAXONE 1 GM/NS 50 ML 1 GM/50 ML BAG IV SCH (03:53)
[2020-12-28 04:35] LABS: Basophils % 0.3 % (0-1.3); Hematocrit 40.2 % (39.6-49.0); Lymphocytes % 8.6 % (15.3-44.8); RBC Red Blood Cell Count 4.56 M/uL (4.33-5.43)
[2020-12-28 05:00] LABS: Albumin 2.7 g/dL (3.4-5.0); Bilirubin Total 0.6 mg/dL (0.2-1.0); Potassium 3.8 mmol/L (3.5-5.1); Protein, Total 6.8 g/dL (6.4-8.2)
[2020-12-28 05:13] LABS: Thyroid Stimulating Hormone 5.7 uIU/mL (0.360-3.740)
[2020-12-28 08:30] VITALS: O2SAT 94
[2020-12-28] MEDS ORDERED: BISOPROLOL 5 MG TABLET PO SCH (09:00)
[2020-12-28] MEDS ORDERED: hydroCHLOROthiazide 25 MG TAB PO SCH (09:00)
[2020-12-28] MEDS ORDERED: LOSARTAN POTASSIUM 50 MG TABLET PO SCH (09:00)
[2020-12-28] MEDS: LEVOTHYROXINE SOD 0.1 MG TAB PO SCH (09:05)
[2020-12-28] MEDS: HEPARIN 5000 UNIT/ML 1 ML VIAL SQ SCH ×2 (09:05→20:17)
[2020-12-28] MEDS: PANTOPRAZOLE 40 MG INJ IVP SCH (09:05)
--- NOTE | 2020-12-28 16:52 | P.PN ---
Subjective Date of Service: 12/28/20 Chief Complaint: Pyelonephritis Patient states he is feeling much better. He denies any flank pain. He is states his appetite has improved. He has no fever. Urine culture is growing Gram negative rods. Physical Examination - Vital Signs Temperature: 98.8 F Blood Pressure: 112/71 Pulse: 64 Respirations: 18 Pulse Ox (%): 98 - Physical Exam General: Alert, In no apparent distress, Oriented x3 HEENT: Mucous membr. moist/pink Neck: JVD not distended Respiratory: Clear to auscultation bilaterally, Normal air movement Cardiovascular: No edema, Regular rate/rhythm, Normal S1 S2, No murmurs Gastrointestinal: Normal bowel sounds, Soft and benign, Non-distended, No tenderness Musculoskeletal: No swelling Integumentary: No rashes, No cyanosis Neurological: Normal strength at 5/5 x4 extr - Studies Microbiology Data (last 24 hrs): 12/27/20 03:30 Blood - Blood Blood Culture Gram Stain - Final 12/27/20 03:30 Blood - Blood Gram Stain - Final Assessment And Plan - Current Problems (Diagnosis) (1) Acute pyelonephritis Current Visit: Yes Status: Acute (2) Sepsis Current Visit: Yes Status: Acute (3) Squamous cell carcinoma of right tonsil Onset Date: 06/21/15 Current Visit: No Status: Acute (4) Acute renal failure Current Visit: Yes Status: Acute - Plan Patient is doing much better today. Urine culture is growing Gram negative rods. Leukocytosis significantly improved. Sepsis resolved. Continue IV Rocephin and follow urine culture for organism identification susceptibility. Diet as tolerated. Renal function is improving. Holding losartan due to YULIYA. Patient is currently normotensive. Continue other antihypertensives.
[2020-12-28] MEDS: GABAPENTIN 300 MG CAP PO SCH (20:17)
[2020-12-28] MEDS: MELATONIN 5 MG TABLET PO PRN (20:17)
[2020-12-29 03:57] LABS: Absolute Lymphocytes (CBC) 1.2 K/uL (0.7-4.9); Basophils % 0.3 % (0-1.3); Hematocrit 38.3 % (39.6-49.0); Lymphocytes % 15.1 % (15.3-44.8); MPV 9.1 fL (7.6-11.3); RBC Red Blood Cell Count 4.32 M/uL (4.33-5.43)
[2020-12-29 04:15] LABS: Albumin 2.4 g/dL (3.4-5.0); Bilirubin Total 0.3 mg/dL (0.2-1.0); Potassium 3.8 mmol/L (3.5-5.1); Protein, Total 6.2 g/dL (6.4-8.2)
[2020-12-29] MEDS: CEFTRIAXONE 1 GM/NS 50 ML 1 GM/50 ML BAG IV SCH (04:55)
[2020-12-29] MEDS: LEVOTHYROXINE SOD 0.1 MG TAB PO SCH (05:00)
[2020-12-29] MEDS ORDERED: PANTOPRAZOLE 40MG TABLET PO SCH (06:30)
[2020-12-29] MEDS: HEPARIN 5000 UNIT/ML 1 ML VIAL SQ SCH (07:35)
[2020-12-29] MEDS: ACETAMINOPHEN 500 MG TAB PO PRN (08:33)
[2020-12-29] MEDS ORDERED: BISOPROLOL 5 MG TABLET PO SCH (12:00)
[2020-12-29] MEDS ORDERED: hydroCHLOROthiazide 25 MG TAB PO SCH (12:00)
--- NOTE | 2020-12-29 12:24 | P.DS ---
Admission Date: 12/27/20 Discharge Date: 12/29/20 Disposition: ROUTINE DISCHARGE Discharge Condition: FAIR Reason for Admission: Pyelonephritis - Problems (1) Acute pyelonephritis Current Visit: Yes Status: Acute (2) Sepsis Current Visit: Yes Status: Acute (3) Squamous cell carcinoma of right tonsil Onset Date: 06/21/15 Current Visit: No Status: Acute (4) Acute renal failure Current Visit: Yes Status: Acute Brief History of Present Illness: 60-year-old male with history of tonsillar cancerin remission, h ypertension presented to the emergency department for vomiting, chills, malaise. Patient reports that he had cervical fusion approximately 3 weeks prior after which he had some dysuria. Patient was evaluated in the emergency department labs are significant for white blood cell count 17.8 with left shift creatinine 1.73 GFR 40 glucose 127 . Urinalysis suggested the presence of UTI. Covid test negative. CT abdomen demonstrated suspected left-sided pyelonephritis. Patient started on Rocephin and admitted for further management. Hospital Course: Patient admitted to the medical and continued on IV Rocephin. Blood work also showed evidence of acute renal failure. His losartan was held briefly. Acute renal failure responded to IV fluid and resolved. Losartan restarted for blood pressure. Blood culture yielded no growth. Urine culture grew pansensitive E coli. Patient's symptoms resolved during the hospital stay. He feels the UTI was as a result of urinary catheterization during the surgery but could not confirm he had a Daven[place] catheter in. He stated they might have inserted and removed the Daven[place] catheter while he was under anesthesia. Patient is discharged with a prescription for Levaquin to complete a total of 10 days of treatment. Vital Signs/Physical Exam: Temp Pulse Resp BP Pulse Ox 99.5 F 66 18 113/83 98 12/29/20 08:00 12/29/20 08:00 12/29/20 08:00 12/29/20 08:00 12/29/20 08:00 General: Alert, In no apparent distress HEENT: Mucous membr. moist/pink Neck: JVD not distended Respiratory: Clear to auscultation bilaterally, Normal air movement Cardiovascular: Regular rate/rhythm, Normal S1 S2 Gastrointestinal: Soft and benign, Non-distended Musculoskeletal: No swelling Integumentary: No rashes Neurological: Normal strength at 5/5 x4 extr, Cranial nerves 3-12 intact Laboratory Data at Discharge: WBC 8.10 K/uL (4.3-10.9) D 12/29/20 03:05 Hgb 12.6 g/dL (13.6-17.9) L 12/29/20 03:05 Hct 38.3 % (39.6-49.0) L 12/29/20 03:05 Plt Count 189 K/uL (152-406) 12/29/20 03:05 Sodium 141 mmol/L (136-145) 12/29/20 03:05 Potassium 3.8 mmol/L (3.5-5.1) 12/29/20 03:05 BUN 24 mg/dL (7-18) H 12/29/20 03:05 Creatinine 1.16 mg/dL (0.55-1.3) 12/29/20 03:05 Glucose 100 mg/dL (74-106) 12/29/20 03:05 Phosphorus 3.0 mg/dL (2.5-4.9) 12/27/20 01:30 Magnesium 2.2 mg/dL (1.8-2.4) 12/27/20 01:30 Total Bilirubin 0.3 mg/dL (0.2-1.0) 12/29/20 03:05 AST 24 U/L (15-37) 12/29/20 03:05 ALT 39 U/L (12-78) 12/29/20 03:05 Alkaline Phosphatase 69 U/L (45-117) 12/29/20 03:05 Triglycerides 138 mg/dL (<150) 12/28/20 04:04 Cholesterol 176 mg/dL (<200) 12/28/20 04:04 HDL Cholesterol 33 mg/dL (40-60) L 12/28/20 04:04 Cholesterol/HDL Ratio 5.33 12/28/20 04:04 Lipase 55 U/L (73-393) L 12/27/20 01:30 Home Medications: Bisoprolol/Hctz [Ziac 6.25*] 1 tab PO DAILY 12/27/20 Gabapentin [Neurontin] 1 cap PO BEDTIME 12/27/20 Levothyroxine [Synthroid*] 1 tab PO DAILY 12/27/20 Losartan Potassium 1 tab PO DAILY 12/27/20 Pantoprazole [Protonix Tab*] 40 mg PO DAILYAC #30 tab 12/29/20 levoFLOXacin [Levaquin] 500 mg PO DAILY #8 tab 12/29/20 New Medications: levoFLOXacin [Levaquin] 500 mg PO DAILY #8 tab Pantoprazole [Protonix Tab*] 40 mg PO DAILYAC #30 tab Diet: AHA Activity: Ad jose d Followup: Johnny Hobson MD [Primary Care Provider] - 1-2 Weeks Time spent managing pt's care (in minutes): 36
[2020-12-29 13:16] VITALS: BP 117/73; TEMP 97.6
== END 2020-12-29 13:45 | disposition home or self-care (01) | DRG 872 ==
LOC: ER 01:09 → ERHOLD 05:02 → 4TH 05:19
PROVIDERS: ADMIT Hospitalist; ATTEND Internal Medicine
DX: A41.9 Sepsis, unspecified organism (principal); N10 Acute pyelonephritis; N17.9 Acute kidney failure, unspecified; B96.20 Unspecified Escherichia coli [E. coli] as the cause of diseases classified elsewhere; I12.9 Hypertensive chronic kidney disease with stage 1 through stage 4 chronic kidney disease, or unspecified chronic kidney disease; N18.30 Chronic kidney disease, stage 3 unspecified; Z85.818 Personal history of malignant neoplasm of other sites of lip, oral cavity, and pharynx; Z88.0 Allergy status to penicillin; Z20.822 Contact with and (suspected) exposure to COVID-19
CPT/HCPCS: 36415; 71045; 74176; 80048; 80053; 80061; 80076; 81003; 81015; 83690; 83735; 84100; 84439; 84443; 85025; 87040; 87077; 87086; 87088; 87186; 87205; 87804; 96374; 96375; 99285; C9113; G0103; J0696; J1644; J2405; J7030; U0003